=== PATIENT | female | born 1980 | race Caucasian/White ===

== ENCOUNTER 2019-06-02 20:43 | Emergency (ER) | payer BC, MEDICAID, OTHER ==
[~2019-06-02] VITALS: Ht 165.1 cm; Wt 89.0 kg
[2019-06-02] MEDS ORDERED: ondansetron 4mg rapidly disintigrating tab PO ONE (22:45)
[2019-06-02] MEDS ORDERED: ketorolac tromethamine 15mg/ml inj. IM ONE (22:45)
--- NOTE | 2019-06-02 22:53 | NUR ---
Pt en route to CT.
[2019-06-02] MEDS ORDERED: MECL-111 PO (23:48)
[2019-06-02] MEDS ORDERED: meclizine 12.5mg tablet PO ONE (23:50)
[2019-06-03 00:17] VITALS: BP 145/96
== END 2019-06-03 00:18 | disposition home or self-care (01) ==
LOC: ER 20:43
DX: S06.0X0A Concussion without loss of consciousness, initial encounter (principal); M54.2 Cervicalgia; H53.8 Other visual disturbances; Z79.899 Other long term (current) drug therapy; W20.8XXA Other cause of strike by thrown, projected or falling object, initial encounter; Y93.89 Activity, other specified; Y92.89 Other specified places as the place of occurrence of the external cause; Y99.8 Other external cause status
CPT/HCPCS: 70450; 72125; 96372; 99284; J1885; J8597; 99283

== ENCOUNTER 2025-06-30 15:38 | Emergency (ER) | payer MEDICAID, OTHER ==
[~2025-06-30] VITALS: Ht 165.1 cm; Wt 85.6 kg
[~2025-06-30 15:38] MED LIST: MECL-302 PO
[2025-06-30 15:48] VITALS: BP 168/95; PULSE 107; O2SAT 97
[2025-06-30 16:18] LABS: URINE HCG NEGATIVE (NEG)
[2025-06-30 16:33] LABS: UA COLLECTION TYPE CLN CATCH MIDSTREAM
[2025-06-30 16:36] LABS: SQUAMOUS EPITHELIAL CELL,UR FEW /LPF (FEW)
[2025-06-30 16:39] LABS: MEAN PLATELET VOLUME 7.0 FL (7.4-10.4); RED CELL DISTRIBUTION WIDTH 13.5 % (11.5-14.5)
[2025-06-30 16:55] LABS: CREATININE 0.92 MG/DL (0.40-0.90); TOTAL CARBON DIOXIDE 32.1 MMOL/L (24-32); eCRCL 70 ML/MIN; eGFR 66 ML/MIN
[2025-06-30] MEDS ORDERED: iohexol 300mg/ml 100ml inj. ONE (18:35)
--- NOTE | 2025-06-30 19:29 | Physician Documentation ---
History of Present Illness ~ Chief Complaint: Urinary Symptoms Stated Complaint: UTI Time Seen by MD: 17:08 Primary Medical Doctor: DR. [facility] Patient is a very pleasant 44-year-old female that presents to the emergency department for what she describes as urinary concerns. Patient reports that she has a significant history of interstitial cystitis but has not been seen in over a year by her OB ground crew linesman or the person that she was seeing regarding the interstitial cystitis. Patient reports that this episode is much more severe than she has ever experienced in accompanied by gross hematuria and overt vaginal bleeding x3 days. Patient reports that this bleeding is not associated with menstruation. Patient denies any history of fibroids or endometriosis or any other gynecologic issues. Patient denies dysuria although she has attempted to take Pyridium because she reports significant pain in her lower abdomen. Patient reports that the pain is suprapubic over her bladder and above her bladder. Patient denies any blood in her stool. Patient reports fever and chills intermittently over the last several days to week. Patient denies shortness of breath chest pain chest pressure lightheadedness or dizziness at this time. No other symptoms reported at this time. Medication Reconciliation Allergies: Coded Allergies: No Known Allergies (Unverified , 06/30/25) Scheduled Meclizine HCl (Meclizine HCl), 1 TAB PO Q12H Past Medical History Past Medical History: No Pertinent History Past Surgical History: no surgical history Lives In: Home Occupation: employed Review of Systems ROS As stated above in the HPI, otherwise all systems are reviewed and negative. Physical Exam Vital Signs: Temperature: 98.0, Source: Oral, Heart Rate: 107, Respiratory Rate: 18, BP: 168/95, Pulse Oximetry: 97, Weight: 85.600 Oxygen Flow Rate: 0 Physical Exam VITALS: Reviewed and as above. GENERAL: Alert, mild distress associated with the pain noted. HEENT: Normocephalic, atraumatic, PERRL, EOMI, dry mucosa, no erythema RESPIRATORY: Lungs clear, normal breath sounds, no respiratory distress. CHEST: No accessory muscle use, no retractions CV: Regular rate, rhythm, no edema, no murmur, No: JVD GI: Soft, significant tenderness noted with palpation suprapubic region over the bladder and above the bladder just below the umbilicus, bowels sounds present, no rebound, guarding, or rigidity BACK: No CVA tenderness, or swelling MUSCULOSKELETAL No deformities, no edema SKIN: Warm and dry, no rash NEURO: Oriented x4, No motor or sensory deficit PSYCH: Normal mood and affect, no agitation Progress Results/Orders Results/Orders Orders - DEBORAH SOLIZ [employer]K SERGEANT Ct Abdomen Pelvis (06/30/25 19:25) * Iv Access / Saline Lock * (06/30/25 18:13) Completed Orders - DEBORAH SOLIZ [employer]K SERGE[employer] Ct Abdomen Pelvis (06/30/25 19:25) Normal Saline 1000ml (0.9% Sodium Chlori (06/30/25 18:15) Iohexol 300mg/Ml 100ml Inj. (Omnipaque-3 (06/30/25 18:35) Medications Received in ER Medications (Trade) Dose Ordered Sig/Gracy Route PRN Reason Start Time Stop Time Status Last Admin Dose Admin Sodium Chloride 1,000 ml @ 1,000 mls/hr ONCE ONCE IV 06/30/25 18:15 06/30/25 19:14 DC 06/30/25 19:37 1,000 MLS/HR Vital Signs 06/30/25 06/30/25 15:48 19:42 Temp 98.0 Pulse 107 Resp 18 16 B/P (MAP) 168/95 Pulse Ox 97 O2 Flow Rate 0 Laboratory Tests Test 06/30/25 15:56 06/30/25 16:15 Urine Specimen Description Cln catch midstream Urine Color [place] Urine Clarity Clear Urine pH Urine Specific [place] Urine Protein Urine Glucose (UA) Urine Ketones Urine Occult Blood Urine Nitrite Urine Bilirubin Urine Urobilinogen Urine Leukocyte Esterase Urine RBC 0-2 Urine WBC 0-4 Urine Squamous Epithelial Cells Few Urine Bacteria Few Urine Culture Indicated Not ind Volume Urine Centrifuged 10 ml Urine HCG, Qualitative Negative Urine Comment See note White Blood Count 4.6 Red Blood Count 4.01 L Hemoglobin 11.6 L Hematocrit 35.2 Mean Corpuscular Volume 87.8 Mean Corpuscular Hemoglobin 29.0 Mean Corpuscular Hemoglobin Concent 33.1 Red Cell Distribution Width 13.5 Platelet Count 322 Mean Platelet Volume 7.0 L Neutrophils (%) (Auto) 63.1 Lymphocytes (%) (Auto) 24.0 Monocytes (%) (Auto) 10.4 Eosinophils (%) (Auto) 1.5 Basophils (%) (Auto) 1.0 Neutrophils # (Auto) 2.9 Lymphocytes # (Auto) 1.1 Monocytes # (Auto) 0.5 Eosinophils # (Auto) 0.1 Basophils # (Auto) 0.0 CBC Comment Sodium Level 143 Potassium Level 3.8 Chloride Level 106 Carbon Dioxide Level 32.1 H Anion Gap 5 L Blood Urea Nitrogen 9 Creatinine 0.92 H Estimated GFR/1.73 m2 66 BUN/Creatinine Ratio 9.8 L Glucose Level 80 Calcium Level 9.0 Total Bilirubin 0.4 Aspartate Amino Transf (AST/SGOT) 25 Alanine Aminotransferase (ALT/SGPT) 33 Alkaline Phosphatase 89 Total Protein 7.4 Albumin 3.9 Globulin 3.5 Albumin/Globulin Ratio 1.1 Lipase 66 Chemistry Comments Medical Decision Making Additional information obtaine: other Findings Patient: 44-year-old female with history of interstitial cystitis Chief Complaint: Gross hematuria, vaginal bleeding, and suprapubic pain History of Present Illness: Patient presented with 3-day history of gross hematuria and non-menstrual vaginal bleeding, significantly more severe than prior interstitial cystitis episodes. Reported suprapubic and bladder pain, intermittent fever and chills over the past week. Denied dysuria, blood in stool, chest pain, or shortness of breath. Has not been followed for interstitial cystitis in over one year. Vaginal bleeding has since subsided during emergency department evaluation. Diagnostic Workup: Urinalysis: Negative for urinary tract infection, microscopic hematuria present Laboratory studies: Largely unremarkable CT abdomen/pelvis: No abnormality or concerning findings Assessment and Clinical Reasoning: This patient presented with gross hematuria in the setting of known interstitial cystitis. While gross hematuria carries a significant association with urologic malignancy (10% cancer detection rate in patients with visible hematuria), the CT imaging was reassuring without evidence of upper tract pathology, renal masses, or bladder abnormalities. [1] The vaginal bleeding has resolved, and the patient's clinical status has stabilized. [place] diagnostic considerations addressed: Urologic malignancy: While gross hematuria warrants urologic evaluation given the >10% pretest probability of cancer, the negative CT imaging significantly reduces immediate concern for upper tract malignancy or large bladder masses. However, cystoscopy remains indicated as CT imaging alone is insufficient to exclude bladder cancer, which is the most common malignancy associated with hematuria. [1-3] Interstitial cystitis exacerbation: The patient's presentation is consistent with a severe flare of her known interstitial cystitis. Hematuria occurs in up to 30-41% of IC patients, though gross hematuria is less common. The course of IC is typically marked by flare-ups and remissions, and this patient has not received ongoing management for over one year. [4-6] Gynecologic pathology: The vaginal bleeding has resolved during the emergency department evaluation, reducing immediate concern for active gynecologic pathology requiring urgent intervention. However, the patient requires outpatient gynecologic evaluation to assess for concurrent pelvic pathology and to establish comprehensive care for her interstitial cystitis. [7] Infectious etiology: The negative urinalysis for infection and absence of pyuria make bacterial cystitis unlikely. The fever may represent a systemic response to severe bladder inflammation from IC exacerbation. Disposition Decision: Patient is appropriate for DISCHARGE based on the following: [1-2] Vaginal bleeding has resolved CT abdomen/pelvis without acute abnormality Hemodynamically stable Pain controlled No evidence of urinary retention or clot retention Negative urinalysis for infection Patient able to tolerate oral intake and void Critical follow-up required: Despite discharge appropriateness, this patient requires urgent outpatient urologic evaluation. The [employer] recommends that all adults with gross hematuria, even if self-limited, should be referred for urologic evaluation including cystoscopy. [2] The cancer detection rate in gross hematuria patients exceeds 10%, and CT imaging alone is insufficient as it cannot adequately evaluate the bladder mucosa for superficial tumors. [1-2] Discharge Plan: Primary care follow-up: Within 1 week to review emergency department evaluation and coordinate specialty referrals Urology referral (URGENT): Patient requires cystoscopy for complete hematuria evaluation despite negative CT imaging. Gross hematuria mandates urologic investigation regardless of imaging results. Referral should be expedited given the episode of gross hematuria. [1-2] CTRS follow-up: For comprehensive evaluation of: Non-menstrual vaginal bleeding (now resolved) Interstitial cystitis management (has not been followed in over 1 year) Suprapubic/pelvic pain Consideration for multimodal IC therapy including oral pentosan polysulfate, dietary modifications, and potential intravesical therapies [6][8-9] Return precautions: Patient instructed to return to emergency department for: Recurrent gross hematuria Inability to void or urinary retention Worsening abdominal/pelvic pain Recurrent vaginal bleeding Fever >101F Lightheadedness, dizziness, or syncope Any other concerning symptoms Medications: Continue Pyridium as needed for bladder pain (patient reports already taking) Consider NSAIDs for pain management if not contraindicated Adequate hydration encouraged Patient Education: Discussed importance of urgent urology follow-up for cystoscopy evaluation Explained that CT imaging alone is not sufficient to exclude bladder pathology Reviewed signs/symptoms requiring immediate return to emergency department Emphasized need for ongoing interstitial cystitis management with gynecology Provided written discharge instructions Prognosis: Dependent on cystoscopy findings and establishment of comprehensive interstitial cystitis management. Patient requires close outpatient follow-up to ensure appropriate cancer screening and symptom control. Urinary Diff Dx:Considerations: Include: AAA, , Aortic dissection, Appendicitis, Bowel obstruction, Cholelithiasis, Choleangitis, DJD, Ectopic , Hepatitis, HNP, Impaction, Intrauterine , Musculoskeletal pain, Ovarian torsion, Pancreatitis, PID, Post-Op complication, Pyelonephritis, Renal failure, Strain, Urinary Obstruction, Urolithiasis, Urinary retention, UTI, Vaginitis, Other Genital Diff Dx:Considerations: Include: -Complete, -Incomple te, -Inevitable, Ablortion-Missed, -Threatened, Abruptio placentae, Bartholin abscess, Bartholin cyst, Blood loss anemia, Constipation, Cervicitis, Dsymenorrhea, Ectopic , Foreign body, Hormonal, Hidradenitis suppurativa, Intrauterine , Menorrhagia, Menometrorrhagia, Menstrual bleeding, Myomatous uterus, Perianal abscess, Physiologic discharge, Pinworms, PID, Placenta previa, , Precipitous Hct, Trauma, UTI, Vaginitis(osis)-Atrophic, Vaginitis, Vaginitis(osis)-Bacterial, Vaginitis(osis)- Candidal, Vaginitis(osis)-Contact, Vaginitis(osis)-Herpes, Vaginitis(osis)- Trich., Other Departure Disposition: 01 HOME / SELF CARE / HOMELESS Impression: Primary Impression: Interstitial cystitis (chronic) with hematuria Condition: Stable Discharge Instructions: Interstitial Cystitis Additional Instructions: Your Diagnosis: You were seen in the emergency department for blood in your urine, vaginal bleeding, and bladder pain. Your symptoms are likely related to a flare-up of your interstitial cystitis (bladder pain syndrome). Your CT scan and blood tests did not show any urgent problems. What You Need to Do: Follow-Up Appointments (IMPORTANT): Primary care doctor: Schedule within 1 week to review your emergency visit and discuss iron supplements for mild anemia Gynecology: Make an appointment to establish care for your interstitial cystitis and to evaluate the vaginal bleeding Urology specialist: You MUST see a urologist for a bladder camera test (cystoscopy) because you had blood in your urine. This is important even though your CT scan was normal [1] Medications: Pyridium (phenazopyridine): Continue as needed for bladder pain (this will turn your urine orange) Tylenol (acetaminophen): Take as directed on the bottle for pain Ibuprofen: Take as directed on the bottle for pain Iron supplements: Discuss with your primary care doctor Self-Care at Home: Drink plenty of water to stay hydrated [2] Avoid foods and drinks that irritate the bladder: [3] Coffee, tea, and caffeinated drinks Alcohol and carbonated beverages [place] fruits and juices (oranges, chun, grapefruit) Tomatoes and tomato products Spicy foods Artificial sweeteners Apply heat to your lower abdomen or pelvis if it helps with pain [2] Avoid tight-fitting clothing [2] Manage stress as it can worsen symptoms [2] Return to the Emergency Department If You Have: Blood in your urine again Unable to urinate Severe or worsening abdominal or pelvic pain Vaginal bleeding returns Fever over 101F Feeling dizzy, lightheaded, or like you might faint Any other symptoms that concern you Important Reminders: Even though your CT scan was normal, you still need to see a urologist for a bladder camera test because you had visible blood in your urine [1] Your urinalysis was affected by the Pyridium you were taking, so your primary care doctor may want to repeat this test Keep track of which foods or drinks make your bladder symptoms worse and avoid them [3] Questions? Call your primary care doctor or return to the emergency department if you have concerns. Referrals: NO PRIMARY CARE PROVIDER (PCP) Education Educated: Patient Educated regarding: diagnosis, treatment, need for follow up Signature Scribe Signature: A Attestation: Scribed for Deborah Soliz by BETH Hernandez . 06/30/25 20:15 DEBORAH SOLIZ Jun 30, 2025 19:29
[2025-06-30] MEDS: normal saline 1000ml 1,000 ML IV ONE (19:37)
[2025-06-30 19:42] VITALS: RESP 16
--- NOTE | 2025-06-30 20:00 | RADIOLOGY REPORT ---
EXAM: CT CT ABDOMEN PELVIS W/ IV CONTRAST History: Significant abdominal pain 3 days of blood not associated with menstruation COMPARISON: None TECHNIQUE: Multidetector spiral CT of the abdomen and pelvis was performed from lung bases to pubic symphysis. Intravenous contrast was administered during this examination. Portal venous imaging was obtained. Axial, coronal and sagittal multiplanar reformats were performed by the technologist on a separate workstation. Radiation Dose : 1. Abdomen/Pelvis: CTDIvol 28.93 mGy, DLP 1337.32 mGy*cm. CONTRAST: Type of contrast: Omnipaque 300 Contrast injected: 100 ml FINDINGS: Lung Bases: No acute or significant lung base finding. Normal heart size. No pleural or pericardial effusion. Liver: The liver is normal in size. No focal lesions. Normal hepatic vascular enhancement. Gallbladder and Biliary Tree: Unremarkable Spleen: Unremarkable Pancreas: The pancreas is normal in appearance without focal lesions or abnormal enhancement. Adrenal Glands: Unremarkable Kidneys: Few punctate nonobstructing calculi within both kidneys. No hydronephrosis. Bladder: Unremarkable Bowel: The stomach is grossly normal in appearance. Small bowel and colon are normal in caliber and distribution. The appendix is not visualized; however, no secondary findings of acute appendicitis identified. Ascites: Absent Lymphadenopathy: No mesenteric, retroperitoneal or periportal lymphadenopathy. Abdominal Wall and Mesentery: Unremarkable. Vasculature: The visualized abdominal aorta is normal in size and caliber. Abdominal and pelvic vessels demonstrate normal enhancement. Pelvic Organs: Unremarkable Musculoskeletal: No aggressive focal bony lesions, acute fractures or dislocation. Grade 1 anterolisthesis of L5 on S1 secondary to bilateral pars defects. IMPRESSION: No acute abdominal or pelvic finding. Radiation optimization: All CT scans at this facility use at least one of these dose optimization techniques: automated exposure control mA and/or kV adjustment per patient size (includes targeted exams where dose is matched to clinical indication) or iterative reconstruction.
[2025-06-30 20:19] VITALS: TEMP 98
== END 2025-06-30 20:29 | disposition home or self-care (01) ==
LOC: ER 15:38
DX: N30.11 Interstitial cystitis (chronic) with hematuria (principal); Z79.899 Other long term (current) drug therapy
CPT/HCPCS: 36415; 74177; 80053; 81001; 81025; 83690; 85025; 96360; 99285; J7030; Q9967